=== PATIENT | female | born 1935 | race African-American/Black ===

== ENCOUNTER 2022-01-19 17:48 | Emergency (ER) | payer OTHER ==
[~2022-01-19] VITALS: Ht 167.6 cm; Wt 53.0 kg
[2022-01-19 18:43] LABS: HEMOGLOBIN. 8.8 g/dL (12.0-16.0); MEAN CORPUSCULAR HEMOGLOBIN 27.9 pg (28.0-32.0); MEAN CORPUSCULAR VOLUME 88.2 fL (81.0-99.0); MEAN PLATELET VOLUME 9.5 fl (7.4-10.4); PLATELET 280 x1000/uL (130-400); RED BLOOD CELL COUNT 3.17 mill/uL (4.2-5.4)
[2022-01-19] MEDS ORDERED: LEVOFLOXACIN 750MG PREMIX 150 ML IV ONE (18:45)
[2022-01-19 18:51] LABS: CHLORIDE 104 mEq/L (98-107)
[2022-01-19 18:56] LABS: BG BASE EXCESS -2.3 mmol/L (-2.0-2.0); BG CARBOXYHEMOGLOBIN 0.5 % (0.5-1.5); BG DEOXYHEMOGLOBIN 5.1 % (0.0-5.0); BG FRACTION INSPIRED OXYGEN 28; BG HCO3 ACT 20.8 mmol/L (22.0-26.0); BG METHEMOGLOBIN 0.3 % (0.0-1.5); BG OXYGEN SATURATION 94.9 % (92.0-98.5); BG OXYHEMOGLOBIN 94.1 % (94.0-97.0); BG PCO2 29.4 mmHg (35.0-45.0); BG PH 7.467 (7.350-7.450); BG PO2 74.4 mmHg (75.0-100.0); BG SAMPLE SITE LEFT RADIAL; BG TOTAL HEMOGLOBIN 9.2 g/dL (12.0-18.0); BG VENT MODE NASAL CANNULA
[2022-01-19 19:44] LABS: PLATELET ESTIMATE NORMAL
[2022-01-19] MEDS ORDERED: HEPARIN 5000 UNITS/ML VIAL IV NR ×2 (21:00→22:38)
[2022-01-19] MEDS ORDERED: IOHEXOL-350 100 ML BOTTLE ONE (23:06)
[2022-01-19] MEDS ORDERED: HEPARIN 25,000 UNITS PREMIX 250 ML IV SCH (23:15)
[2022-01-19] MEDS ORDERED: HEPARIN BOLUS PRN aPTT 37-44 IV (23:15)
[2022-01-19] MEDS ORDERED: HEPARIN BOLUS PRN aPTT <36 IV (23:15)
[2022-01-19] MEDS ORDERED: HEPARIN 25,000 UNITS in DEXT 5% WATER 250 ML IV SCH (23:15)
[2022-01-19 23:36] LABS: INR 1.1; PROTHROMBIN TIME 12.2 sec (9.6-11.0)
[2022-01-20 00:53] LABS: PARTIAL THROMBOPLASTIN TIME > 200.0 sec (23.4-31.0)
[2022-01-20 01:30] VITALS: BP 103/73
== END 2022-01-20 02:00 | disposition short-term general hospital (02) ==
LOC: ER 17:48
DX: I82.401 Acute embolism and thrombosis of unspecified deep veins of right lower extremity (principal); J96.91 Respiratory failure, unspecified with hypoxia; J45.909 Unspecified asthma, uncomplicated; E11.9 Type 2 diabetes mellitus without complications; I10 Essential (primary) hypertension; Z20.822 Contact with and (suspected) exposure to COVID-19; Z88.6 Allergy status to analgesic agent; Z88.5 Allergy status to narcotic agent
CPT/HCPCS: 36415; 36600; 71045; 71275; 80053; 82375; 82805; 83880; 84484; 85025; 85379; 85610; 85730; 87040; 87426; 93005; 93971; 96365; 96366; 96375; 99291; J1644; J1956; Q9967; J7060

== ENCOUNTER 2022-02-14 14:32 | Emergency (ER) | payer OTHER ==
[~2022-02-14] VITALS: Ht 152.4 cm; Wt 50.0 kg
[2022-02-14] MEDS ORDERED: SODIUM CHLORIDE 0.9% 1,000 ML IV ONE (15:00)
[2022-02-14 15:55] LABS: HEMATOCRIT. 40.5 % (36.0-48.0); HEMOGLOBIN. 12.3 g/dL (12.0-16.0); MEAN CORPUSCULAR HEMOGLOBIN 25.8 pg (28.0-32.0); MEAN CORPUSCULAR VOLUME 84.8 fL (81.0-99.0); MEAN PLATELET VOLUME 9.4 fl (7.4-10.4); PLATELET 195 x1000/uL (130-400); RED BLOOD CELL COUNT 4.78 mill/uL (4.2-5.4); RED CELL DISTRIBUTION WIDTH 21.2 % (11.6-14.6)
[2022-02-14 16:05] LABS: CHLORIDE 104 mEq/L (98-107)
[2022-02-14 17:03] LABS: PLATELET ESTIMATE NORMAL
[2022-02-14 23:36] VITALS: BP 120/77
== END 2022-02-15 00:02 | disposition short-term general hospital (02) ==
LOC: ER 14:32 → CANBEDREQ 02-15 21:29
DX: E87.70 Fluid overload, unspecified (principal); R09.02 Hypoxemia; I12.0 Hypertensive chronic kidney disease with stage 5 chronic kidney disease or end stage renal disease; E11.22 Type 2 diabetes mellitus with diabetic chronic kidney disease; N18.6 End stage renal disease; Z99.2 Dependence on renal dialysis; K21.9 Gastro-esophageal reflux disease without esophagitis; J45.909 Unspecified asthma, uncomplicated; D64.9 Anemia, unspecified; Z88.6 Allergy status to analgesic agent; Z88.8 Allergy status to other drugs, medicaments and biological substances; Z95.0 Presence of cardiac pacemaker; Z20.822 Contact with and (suspected) exposure to COVID-19
CPT/HCPCS: 36415; 71045; 80053; 82962; 83880; 85025; 87426; 93005; 96360; 99285; C9803; J7030

== ENCOUNTER 2022-05-23 12:29 | Emergency (ER) | payer OTHER ==
[~2022-05-23] VITALS: Ht 160 cm; Wt 50.0 kg
[2022-05-23 14:11] LABS: HEMATOCRIT. 32.5 % (36.0-48.0); HEMOGLOBIN. 10.2 g/dL (12.0-16.0); MEAN CORPUSCULAR HEMOGLOBIN 26.9 pg (28.0-32.0); MEAN PLATELET VOLUME 8.8 fl (7.4-10.4); PLATELET 341 x1000/uL (130-400); RED BLOOD CELL COUNT 3.78 mill/uL (4.2-5.4); RED CELL DISTRIBUTION WIDTH 21.8 % (11.6-14.6)
[2022-05-23 14:21] LABS: CHLORIDE 100 mEq/L (98-107)
[2022-05-23 17:34] LABS: PLATELET ESTIMATE NORMAL
[2022-05-23] MEDS ORDERED: VANCOMYCIN 1G PREMIX 200 ML IV ONE (17:45)
[2022-05-23] MEDS ORDERED: CEFTRIAXONE 1 G PREMIX 50 ML IV ONE (17:45)
[2022-05-23] MEDS ORDERED: SODIUM CHLORIDE 0.9% 1,000 ML IV ONE (18:15)
[2022-05-23 21:30] VITALS: BP 142/80
== END 2022-05-23 21:17 | disposition short-term general hospital (02) ==
LOC: ER 12:49 → CMPBEDREQ 05-24 01:22
DX: R06.02 Shortness of breath (principal); D72.829 Elevated white blood cell count, unspecified; J45.909 Unspecified asthma, uncomplicated; E11.9 Type 2 diabetes mellitus without complications; I10 Essential (primary) hypertension; R51.9 Headache, unspecified; Z20.822 Contact with and (suspected) exposure to COVID-19; Z91.15 Patient's noncompliance with renal dialysis; Z88.6 Allergy status to analgesic agent; Z88.5 Allergy status to narcotic agent
CPT/HCPCS: 36415; 70450; 71045; 80053; 82140; 83605; 83690; 83880; 84443; 84484; 85025; 87040; 87426; 93005; 96365; 96375; 99291; C9803; J0696; J3370; J7030